=== PATIENT | male | born 1995 | race African-American/Black ===

== ENCOUNTER 2018-07-31 08:41 | Emergency (ER) | payer OTHER ==
[~2018-07-31] VITALS: Ht 180.3 cm; Wt 79.8 kg
[2018-07-31 08:45] VITALS: BP 123/80
== END 2018-07-31 09:29 | disposition home or self-care (01) ==
LOC: ED 09:23
DX: Z04.1 Encounter for examination and observation following transport accident (principal); V47.0XXA Car driver injured in collision with fixed or stationary object in nontraffic accident, initial encounter; Y93.89 Activity, other specified; Y92.488 Other paved roadways as the place of occurrence of the external cause; Y99.8 Other external cause status
CPT/HCPCS: 99283